=== PATIENT | female | born 1960 | race Caucasian/White ===

== ENCOUNTER 2020-06-05 10:11 | Emergency (ER) | payer OTHER, SELFPAY ==
[2020-06-05 10:31] VITALS: BP 143/86; PULSE 81; TEMP 36.3; O2SAT 98
--- NOTE | 2020-06-05 10:37 | ED.GENADUL_ITS ---
Discharge Plan Disposition Patient Disposition: HOME Condition: Stable Discharge Details Chief Complaint: AnimalBite Clinical Impression: Cat bite of ankle Primary Care Provider: Ne Proctor ED Provider: Umang Bhatti Home Meds and New Rx's Prescriptions: New amoxicillin-pot clavulanate [Augmentin] 875-125 mg tablet 1 tab PO BID Qty: 20 RF: 0 Discharge Instructions Instructions: Animal Bite (ED) Additional Instructions: Augmentin as directed. Keep the area clean and dry, you may apply antibiotic ointment daily. Please watch for new or worsening symptoms and return to the ER for any concerns. Medical Decision Making 60-year-old female presents having been bitten by her cat after accidentally stepping on his tail. She appears well, nontoxic. Neuro, vascular, tendon intact. Will fill out the proper paperwork for animal bite. Will not update the tetanus status secondary to her allergy. Will obtain x-ray to rule any foreign body or unlikely bony abnormality. Will initiate Keflex therapy. Patient reports that she already thoroughly cleaned the area with soap and water and applied antibiotic ointment X-ray of left ankle unremarkable. Patient made aware of findings. Has no additional questions or concerns. Medical Records Medical records reviewed: Yes I reviewed the patient's medical records. Imaging Data Radiologic Study: Attestation: I personally reviewed and interpreted this imaging study as follows: Imaging: X-Ray Radiologist's impression: Left ankle unremarkable HPI General Mode of arrival: ambulatory . Date/Time Provider Initiated Documentation: 06/05/20 10:16 . Limitations to Documentation: no limitations . Information obtained by: patient . HPI Narrative: 60-year-old female with history of hypertension, neuropathy, presents to the ER having had accidentally stepped on her cat, subsequently being bitten earlier this morning. She reports that the cat is healthy and up-to-date on all of his shots immunizations. She reports that she is unable to take the tetanus vaccine secondary to an allergy. She reports mild discomfort around the site of the bite but has no other symptoms. She has very little concern for a foreign body. No active bleeding. Reports mild decrease sensation secondary to her neuropathy but no true numbness or weakness. Related Data Home Medications Medication Instructions Recorded Confirmed amoxicillin-pot clavulanate 1 tab PO BID #20 tab 06/05/20 [Augmentin] Previous Rx's Medication Instructions Recorded amoxicillin-pot clavulanate 1 tab PO BID #20 tab 06/05/20 [Augmentin] Allergies Allergy/AdvReac Type Severity Reaction Status Date / Time Tetanus Vaccines and Toxoid AdvReac Severe Swelling/Ed Unverified 06/05/20 10:39 [Tetanus Vaccines & Toxoid] keon grass pollen-perennial rye, AdvReac Unverified 06/05/20 10:39 standar [grass poll-perennial rye,std] black fly Allergy Intermediate Swelling/Ed Uncoded 06/05/20 10:39 keon General Stated Complaint: AnimalBite JAYY: 5 Review of Systems Constitutional Constitutional: Denies fever(s) and Denies weakness Musculoskeletal Musculoskeletal: Denies numbness and Denies tingling Integumentary/Breasts Skin/Breast: Denies rash Neurologic Neurologic: Denies numbness, Denies tingling and Denies weakness [facility] Medical History Alcohol abuse (Inactive 07/21/14) Bullous pemphigoid (Acute 07/10/14) 07/03/14 [facility] [place] Crohn's disease in remission (Acute 06/29/14) Hypertension (Acute 06/29/14) Hyponatremia (Acute 07/21/14) Nystagmus (Acute 06/29/14) Wedge compression fracture of first lumbar vertebra, initial encounter for closed fracture (Acute 02/10/17) Surgical History fistulectomy 1999 Family History Mother Personal history of malignant neoplasm cervical cancer Father No problems noted. Brother No problems noted. Grandfather Essential hypertension Heart disease Hyperlipidemia Grandmother Essential hypertension Hyperlipidemia Social History Smoking/Tobacco Use Status: Never Alcohol Intake: current Alcohol Intake frequency: 0-2 drinks per day Alcohol type: wine Drug use: Never Substance use type: does not use Do you feel safe at home: Yes Do you feel safe in your relationship?: Yes Exam Const General: cooperative, healthy appearing, comfortable and no acute distress Orientation: alert and awake [facility] Head: normal to inspection, normocephalic and atraumatic Mouth: moist mucous membranes Eyes Conjunctivae: conjunctivae normal Neck Neck: normal visual inspection, trachea midline and supple Resp Effort & Inspection: normal respiratory effort and able to speak in complete sentences Cardio Rate: regular rate Rhythm: regular rhythm Skin General skin exam: no rashes or lesions noted Neuro General: patient alert, patient awake, moves all extremities and no focal motor deficits Sensory Exam: no sensory deficits noted Extrem Left lower extremity: ankle Details: normal ROM and other (abrasion and 3 separate puncture wounds. No bleeding or foreign body); no tenderness and no swelling Psych Appearance: grossly normal Mental Status: mental status grossly normal Course Vital Signs Vital signs: Vital Signs Temperature 36.3 C L 06/05/20 10:31 Pulse 81 06/05/20 10:31 Blood Pressure 143/86 H 06/05/20 10:31 Pulse Oximetry 98 06/05/20 10:31 Temperature 36.3 C L 06/05/20 10:31 Temperature Source Temporal Artery Scan 06/05/20 10:31 Pulse 81 06/05/20 10:31 Blood Pressure 143/86 H 06/05/20 10:31 Blood Pressure Position Sitting 06/05/20 10:31 Pulse Oximetry 98 06/05/20 10:31 Oxygen Delivery Method Room Air 06/05/20 10:31 Oxygen Flow Rate 0 06/05/20 10:31 Pain Level 1 06/05/20 10:31
--- NOTE | 2020-06-05 11:05 | DI.RAD_ITS ---
EXAM: XR ANKLE LT 2V CLINICAL HISTORY: leticia bite TECHNIQUE: COMPARISON: No exams were available for comparison FINDINGS: Two views were obtained. The ankle mortise is well maintained. No bony or soft tissue abnormality s een apart from some spurring at the attachment sites of plantar fascia and Achilles tendon on the deandre caneus. IMPRESSION:
--- NOTE | 2020-06-05 11:50 | NUR.NOTE ---
Nursing Note: Animal Bite reported to [facility] Officer/form faxed to [facility] Clerks Office.
== END 2020-06-05 11:19 | disposition home or self-care (01) ==
PROVIDERS: Emergency Provider Physician Assistant; PCP Nurse Practitioner
DX: S91.052A Open bite, left ankle, initial encounter (principal); W55.01XA Bitten by cat, initial encounter; I10 Essential (primary) hypertension
CPT/HCPCS: 99283; 73600

== ENCOUNTER 2021-05-22 08:55 | Emergency (ER) | payer OTHER, SELFPAY ==
[2021-05-22 08:59] VITALS: BP 163/86; PULSE 78; RESP 18; TEMP 36.2; O2SAT 99
--- NOTE | 2021-05-22 09:12 | ED.GENADUL_ITS ---
Discharge Plan Disposition Patient Disposition: HOME Condition: Stable Discharge Details Clinical Impression: UTI (urinary tract infection), Right flank pain Primary Care Provider: Ne Proctor ED Provider: Monet Mlils Home Meds and New Rx's Prescriptions: New cephalexin 500 mg capsule 500 mg PO BID 7 Days Qty: 14 RF: 0 ondansetron 4 mg tablet,disintegrating 4 mg PO TID PRN (Reason: nausea and vomiting) 4 Days Qty: 7 RF: 0 cyclobenzaprine 10 mg tablet 10 mg PO TID PRN (Reason: muscle spasm) Qty: 10 RF: 0 Discharge Instructions Instructions: Urinary Tract Infection in Women (ED), Low Back Strain (ED) Additional Instructions: X-ray shows no new findings from previous. Alternate ice and heat, take antibiotic and nausea medication as directed. Follow up with primary care provider in 3-5 days. Return to ED or be seen sooner if any worsening or concerns. Increase oral fluids. You may apply lidocaine patches once daily which you can get over the counter. Please take Tylenol or Ibuprofen with food every 4-6 hours as needed for pain and swelling. Stand Alone Forms: Physical Therapy Referral Referrals: Ne Proctor, [employer] P[employer] INSPECTOR [Primary Care Provider] - Medical Decision Making 61-year-old female presents the ER with chief complaint of right paraspinous back pain and muscle spasm. Patient reports that she was on a boat this weekend and recently did some heavy lifting. Pain got worse over the last 2?3 days. She has been taking Aleve at home and trying her 's muscle relaxer with little to no relief. She denies any radiation of pain into her legs denies any saddle anesthesia no loss of bowel or bladder control. She denies any recent trauma or falls. Pain is worse with movement and deep breathing. She has a past medical history of Crohn's disease, hypertension, bullous pemphigoid, wedge compression fracture of first lumbar vertebrae. She is a current daily smoker occasional alcohol. She has not taken anything for pain this morning. X-ray L-spine ordered, urinalysis, Valium 5 mg, 1 g of Tylenol and 5% lidocaine patch. Urinalysis shows positive nitrites, trace ketones, trace blood, small leukocytes 3-5 RBCs and 10-20 WBCs. Moderate bacteria, culture is pending at this time. Patient reevaluation, discussed urinalysis results with patient and cephalexin 500 mg p.o. given with 4 mg of Zofran ODT. Patient states that she gets nauseated and vomits with antibiotics. FINDINGS: There is a wedge compression fracture of L1, proximally 30 percent, age indeterminate. No obvious retropulsed fragment. Other lumbar vertebrae as well as T11 and T12 exhibit normal height. There is mild disc space narrowing noted at L2-3 and L5-S1 levels. No obvious facet arthropathy. No listhesis. IMPRESSION: Wedge compression fracture at superior endplate level of L1 vertebral body. Age indeterminate. Discussed findings with patient home care verbalized understanding. They are requesting a physical therapy referral which was placed at discharge. Put patient on 500 mg cephalexin twice daily x7 days. Instructed on RICE procedures. Patient remained hemodynamically stable throughout stay. Discussed strict return instructions and follow-up with PCP. HPI General Mode of arrival: ambulatory . Date/Time Provider Initiated Documentation: 05/22/21 08:56 . Limitations to Documentation: no limitations . Information obtained by: patient . HPI Narrative: 61-year-old female presents the ER with chief complaint of right paraspinous back pain and muscle spasm. Patient reports that she was on a boat this weekend and recently did some heavy lifting. Pain got worse over the last 2?3 days. She has been taking Aleve at home and trying her 's muscle relaxer with little to no relief. She denies any radiation of pain into her legs denies any saddle anesthesia no loss of bowel or bladder control. She denies any recent trauma or falls. Pain is worse with movement and deep breathing. She has a past medical history of Crohn's disease, hypertension, bullous pemphigoid, wedge compression fracture of first lumbar vertebrae. She is a current daily smoker occasional alcohol. She has not taken anything for pain this morning. Related Data Home Medications Medication Instructions Recorded Confirmed cephalexin 500 mg PO BID 7 Days #14 cap 05/22/21 cyclobenzaprine 10 mg PO TID PRN #10 tab 05/22/21 ondansetron 4 mg PO TID PRN 4 Days #7 tab 05/22/21 Previous Rx's Medication Instructions Recorded cephalexin 500 mg PO BID 7 Days #14 cap 05/22/21 cyclobenzaprine 10 mg PO TID PRN #10 tab 05/22/21 ondansetron 4 mg PO TID PRN 4 Days #7 tab 05/22/21 Allergies Allergy/AdvReac Type Severity Reaction Status Date / Time Tetanus Vaccines and Toxoid AdvReac Severe Swelling/Ed Unverified 05/22/21 09:04 [Tetanus Vaccines & Toxoid] keon grass pollen-perennial rye, AdvReac Unverified 05/22/21 09:04 standar [grass poll-perennial rye,std] black fly Allergy Intermediate Swelling/Ed Uncoded 05/22/21 09:04 keon General Stated Complaint: Nk/Back Pain JAYY: 3 Review of Systems Narrative: Constitutional: Negative for weight loss, alert and oriented, well groomed, normal body habitus, appears uncomfortable. HEENT: Denies trauma, headaches, blurry vision, nasal discharge, sore throat, trouble swallowing. Chest: Denies chest pain, palpitations, irregular rhythm, hypertension. Respiratory: Denies Shortness of breath, cough, hemoptysis. GI: Denies abdominal pain, nausea, vomiting, diarrhea, constipation. : Denies dysuria, hematuria, rectal bleeding. Musculoskeletal: Right paraspinous lumbar back pain. Neuro: Denies dizziness, blurry vision, weakness, syncope, headache or facial numbness. Denies loss of bowel or bladder control no numbness tingling. Hematologic: Denies easy bruising, intolerance to heat or cold, hair loss. [facility] Medical History (Updated 05/22/21 @ 10:49 by Monet Mills) Alcohol abuse (07/21/14) Bullous pemphigoid (07/10/14) 07/03/14 [facility] [place] Crohn's disease in remission (06/29/14) Hypertension (06/29/14) Hyponatremia (07/21/14) Nystagmus (06/29/14) Wedge compression fracture of first lumbar vertebra, initial encounter for closed fracture (02/10/17) Surgical History fistulectomy 1999 Family History Mother Personal history of malignant neoplasm cervical cancer Father No problems noted. Brother No problems noted. Grandfather Essential hypertension Heart disease Hyperlipidemia Grandmother Essential hypertension Hyperlipidemia Social History Smoking/Tobacco Use Status: Never Smoking risk assessment performed?: Yes Alcohol Intake: current Alcohol Intake frequency: 3 or more drinks per day Alcohol type: wine Drug use: Never Substance use type: does not use Do you feel safe at home: Yes Do you feel safe in your relationship?: Yes Exam Narrative Exam Narrative: Constitutional: Alert and oriented x3. Appears stated age. Normal body habitus. Head: Normocephalic, no trauma. Eyes: Pupils PERRLA, Red reflex noted, EOM's intact. Eyelids symmetrical without lesions, discharge, or swelling. Chest: RRR, Normal S1, S2, distal pulses intact. Resp: Lungs clear to auscultation bilaterally, no wheezes, rales, or rhonchi. Musculoskeletal: Normal gait, 5/5 strength to all four extremities. No midline crepitus or step-off. Does have some right paraspinous tenderness and spasm with palpation. Skin: No suspicious rashes or lesions. Capillary refill less than 2 sec. Neurologic: Cranial nerves II-XII intact. Alert and oriented x 3. DTR's intact. Hematologic/Lymphatic: No ecchymosis, no lymphadenopathy. Course Vital Signs Vital signs: Vital Signs Temperature 36.2 C L 05/22/21 08:59 Pulse 78 05/22/21 08:59 Respiratory Rate 18 05/22/21 08:59 Blood Pressure 163/86 H 05/22/21 08:59 Pulse Oximetry 99 05/22/21 08:59 Temperature 36.2 C L 05/22/21 08:59 Temperature Source Temporal Artery Scan 05/22/21 08:59 Pulse 78 05/22/21 08:59 Respiratory Rate 18 05/22/21 08:59 Respiratory Effort Non-Labored 05/22/21 09:03 Blood Pressure 163/86 H 05/22/21 08:59 Blood Pressure Position Sitting 05/22/21 08:59 Pulse Oximetry 99 05/22/21 08:59 Oxygen Delivery Method Room Air 05/22/21 08:59 Oxygen Flow Rate 0 05/22/21 08:59 Pain Level 10 05/22/21 08:59
[2021-05-22] MEDS: Acetaminophen 500 MG TAB 1000 MG PO (09:26)
[2021-05-22] MEDS: Lidocaine 5% Patch 1 PATCH TP (09:26)
[2021-05-22] MEDS: diazePAM 5 MG TAB PO (09:26)
[2021-05-22 09:29] LABS: Bilirubin Negative (Negative); Blood Trace-intact (Negative); Clarity Clear (Clear); Glucose 100 mg/dL (Negative); Ketones Trace mg/dL (Negative); Leukocyte Esterase Small (Negative); Nitrite Positive (Negative); Specific Gravity 1.015 (1.005-1.025); Urobilinogen 0.2 EU/dL (Up TO 0.2)
[2021-05-22 09:40] LABS: Bacteria Moderate HPF (Negative); C & S Indicated? Yes; Casts Negative LPF (Negative); Crystals Negative HPF (Negative); Epithelial Cells Rare HPF (Negative); Mucus Negative (Negative); Other Cells Negative (Negative)
[2021-05-22] MEDS: Cephalexin 500 MG CAP PO (09:57)
[2021-05-22] MEDS: Ondansetron O.D.T. 4 MG TABEF PO (09:59)
--- NOTE | 2021-05-22 10:26 | DI.RAD_ITS ---
Exam(s) XR LUMBAR SPINE COMPLETE EXAM: XR LUMBAR SPINE COMPLETE CLINICAL HISTORY: Back pain,Hx L1 compression fracture. TECHNIQUE: 2D digital imaging was performed. COMPARISON: US ABDOMEN ULTRASOUND (P) from 02/25/2012 FINDINGS: There is a wedge compression fracture of L1, proximally 30 percent, age indeterminate. No obvious re tropulsed fragment. Other lumbar vertebrae as well as T11 and T12 exhibit normal height. There is m ild disc space narrowing noted at L2-3 and L5-S1 levels. No obvious facet arthropathy. No listhesis . IMPRESSION: Wedge compression fracture at superior endplate level of L1 vertebral body. Age indeterminate. DATA REPOSITORY: RADIATION DOSE DELIVERED:
== END 2021-05-22 11:02 | disposition home or self-care (01) ==
PROVIDERS: Emergency Provider Registered Nurse Emergency; PCP Nurse Practitioner
DX: N39.0 Urinary tract infection, site not specified (principal); R10.9 Unspecified abdominal pain
CPT/HCPCS: 99283; 72110; 81003; 81015; 87086

== ENCOUNTER 2024-03-10 12:10 | Emergency (ER) | payer MEDICARE, SELFPAY ==
[2024-03-10 12:12] VITALS: BP 159/81; PULSE 87; RESP 16; TEMP 36.5; O2SAT 96
--- NOTE | 2024-03-10 12:30 | DI.RAD_ITS ---
Exam(s) XR FOOT RT COMPLETE EXAM: XR FOOT RT COMPLETE CLINICAL HISTORY: Pain. TECHNIQUE: 2D digital imaging was performed. Three views. COMPARISON: CR RIGHT FOOT COMPLETE from 12/22/2008 FINDINGS: BONES: No acute fracture is present. No bony destructive lesion is seen. Tiny heel spurs. JOINTS: No dislocation present. Degenerative changes of the 1st MTP joint. SOFT TISSUE: Normal. IMPRESSION: Degenerative changes of the 1st MTP joint. DATA REPOSITORY: RADIATION DOSE DELIVERED:
--- NOTE | 2024-03-10 12:30 | DI.RAD_ITS ---
Exam(s) XR ANKLE RT COMPLETE EXAM: XR ANKLE RT COMPLETE CLINICAL HISTORY: Pain. TECHNIQUE: 2D digital imaging was performed. Three views. COMPARISON: CR XR ANKLE LT 2V from 06/05/2020 FINDINGS: BONES: No acute fracture is present. No bony destructive lesion is seen. Tiny heel spurs. JOINTS: The ankle mortise is normally aligned. No significant degenerative changes. SOFT TISSUE: Normal. IMPRESSION: Tiny heel spurs. No acute abnormality. DATA REPOSITORY: RADIATION DOSE DELIVERED:
--- NOTE | 2024-03-10 12:46 | ED.GENADUL_ITS ---
Discharge Plan Disposition Patient Disposition: Home Condition: Stable Discharge Details Clinical Impression: Heel spur, Arthritis of foot, right, degenerative Primary Care Provider: Viry Friedman ED Provider: Monet Mills Home Meds and New Rx's Prescriptions: No Action No Known Home Meds Discharge Instructions Instructions: Heel Spur (ED), Arthritis (ED) Additional Instructions: Wear the walking boot for comfort as needed. Rest ice elevation when sitting or laying down. X-rays show small heel spurs which may be the cause for your pain. He also have due to some degenerative joint disease in your first large big toe. No broken bones or fractures noted. Please take Tylenol or Ibuprofen with food every 4-6 hours as needed for pain and swelling. Follow up with primary care provider in 3-5 days. Return to ED sooner if any worsening or concerns. Referrals: Viry Friedman, SALES ASSISTANT [employer] [Primary Care Provider] - 3 days Discharge Data Discharge Date/Time-TO BE ENTERED AT DEPARTURE: 03/10/24 14:41 HPI General Mode of arrival: ambulatory . Date/Time Provider Initiated Documentation: 03/10/24 12:22 . Limitations to Documentation: no limitations . Information obtained by: patient, family, RN notes reviewed and old records reviewed . HPI Narrative: 64-year-old female presents to ER with a chief complaint of right foot and ankle pain which began last night. She reports that it started from her heel going up her ankle when putting weight on it. She reports that she had to crawl to the b athroom and unable to ambulate this morning. She denies any known injury she reports that she had a normal day yesterday. Did not take any Tylenol or ibuprofen. She does have a history of alcohol abuse. Related Data Home Medications Medication Instructions Recorded Confirmed Unknown [No Known Home Meds] 03/10/24 03/10/24 Allergies Allergy/AdvReac Type Severity Reaction Status Date / Time Tetanus Vaccines and Toxoid AdvReac Severe Swelling/Ed Verified 03/10/24 12:18 [Tetanus Vaccines & Toxoid] keon grass pollen-perennial rye, AdvReac Other (See Verified 03/10/24 12:18 standar Comment) [grass poll-perennial rye,std] black fly Allergy Intermediate Swelling/Ed Uncoded 03/10/24 12:18 keon General Stated Complaint: Orthopedic JAYY: 4 Review of Systems Musculoskeletal Musculoskeletal: Reports as per HPI Exam Const General: cooperative and healthy appearing Nutritional Appearance: average body habitus Orientation: alert, awake and oriented x3 Skin General skin exam: no rashes or lesions noted, elasticity normal and turgor normal Extrem General: normal to inspection Right lower extremity: ankle Details: normal to inspection and foot Details: normal to inspection and no edema; no crepitus Course Vital Signs Vital signs: Vital Signs Temperature 36.5 C 03/10/24 12:12 Pulse 87 03/10/24 12:12 Respiratory Rate 16 03/10/24 12:12 Blood Pressure 159/81 H 03/10/24 12:12 Pulse Oximetry 96 03/10/24 12:12 Temperature 36.5 C 03/10/24 12:12 Temperature Source Oral 03/10/24 12:12 Pulse 87 03/10/24 12:12 Respiratory Rate 16 03/10/24 12:12 Respiratory Effort Normal 03/10/24 12:20 Blood Pressure 159/81 H 03/10/24 12:12 Pulse Oximetry 96 03/10/24 12:12 Oxygen Delivery Method Room Air 03/10/24 12:12 Oxygen Flow Rate 0 03/10/24 12:12 Pain Level 3 03/10/24 12:12 Medical Decision Making 64-year-old female presents to ER with a chief complaint of right foot and ankle pain which began last night. She reports that it started from her heel going up her ankle when putting weight on it. She reports that she had to crawl to the bathroom and unable to ambulate this morning. She denies any known injury she reports that she had a normal day yesterday. Did not take any Tylenol or ibuprofen. She does have a history of alcohol abuse. No obvious deformity or crepitus is palpated. X-ray of foot and ankle ordered. I did offer analgesic which patient declined at this time. X-ray results noted below, does show some degenerative changes and tiny heel spurs. Patient given a walking boot, instructed on home care and follow-up care. This text was generated using [employer] Radioation system, please disregard any oddities of phrase or misspellings. Imaging Data Radiologic Study: Imaging: X-Ray Radiologist's impression: EXAM: XR FOOT RT COMPLETE CLINICAL HISTORY: Pain. TECHNIQUE: 2D digital imaging was performed. Three views. COMPARISON: CR RIGHT FOOT COMPLETE from 12/22/2008 FINDINGS: BONES: No acute fracture is present. No bony destructive lesion is seen. Tiny heel spurs. JOINTS: No dislocation present. Degenerative changes of the 1st MTP joint. SOFT TISSUE: Normal. IMPRESSION: Degenerative changes of the 1st MTP joint. Quality:SDOH Health Related Social Needs: No Data to Display PFSH All Active Problems (Updated 03/10/24 @ 14:09 by Monet Mills NP) Arthritis of foot, right, degenerative (Acute) Heel spur (Acute) Positive self-administered antigen test for COVID-19 (Acute) sx onset 03/21/23. positive home test 03/23/23 Right low back pain (Acute) Presenting w/ M-Skel pain.. Hx T11-L1 Vert Fx. UTI (urinary tract infection) (Acute) ED, 05/22/21 w/ flank pain .. now c/o right back pain ... Right flank pain (Acute) Ba angioma (Acute) Onychomycosis (Acute) Milia (Acute) Seborrheic keratoses (Acute) Bullous pemphigoid (Acute 07/10/14) 07/03/14 [facility] [place] Wedge compression fracture of first lumbar vertebra, initial encounter for closed fracture (Acute 02/10/17) Nystagmus (Acute 06/29/14) Hyponatremia (Acute 07/21/14) Hypertension (Acute 06/29/14) Crohn's disease in remission (Acute 06/29/14) Medical History Alcohol abuse (07/21/14) Surgical History fistulectomy 1999 Family History Mother Personal history of malignant neoplasm cervical cancer Father No problems noted. Brother No problems noted. Grandfather Essential hypertension Heart disease Hyperlipidemia Grandmother Essential hypertension Hyperlipidemia Social History Smoking/Tobacco Use Status: Never Smoking risk assessment performed?: Yes Alcohol Intake: current Alcohol Intake frequency: 3 or more drinks per day Alcohol type: wine Drug use: Never Substance use type: does not use Do you feel safe at home: Yes Do you feel safe in your relationship?: Yes
[2024-03-10 13:48] VITALS: BP 139/76; PULSE 95; RESP 18; O2SAT 99
== END 2024-03-10 14:41 | disposition home or self-care (01) ==
PROVIDERS: Emergency Provider Registered Nurse Emergency; PCP Nurse Practitioner Adult Health
DX: M19.071 Primary osteoarthritis, right ankle and foot (principal); M77.31 Calcaneal spur, right foot; I10 Essential (primary) hypertension
CPT/HCPCS: 99283; 73610; 73630

== ENCOUNTER → 2024-04-06 14:23 | Outpatient (BNVA) | payer MEDICARE, BC, SELFPAY | PROVIDERS: PCP Nurse Practitioner Adult Health; Referring Provider Nurse Practitioner Adult Health; Visit Provider Podiatrist | DX: M84.374A Stress fracture, right foot, initial encounter for fracture; M84.371A Stress fracture, right ankle, initial encounter for fracture; M79.671 Pain in right foot; B35.1 Tinea unguium; L60.3 Nail dystrophy; M79.672 Pain in left foot; X58.XXXA Exposure to other specified factors, initial encounter | CPT/HCPCS: 99203 ==

== ENCOUNTER → 2024-04-08 01:21 | Outpatient (CLI) | payer MEDICARE, BC, SELFPAY ==
--- NOTE | 2024-04-08 06:45 | DI.RAD_ITS ---
Exam(s) XR ANKLE RT COMPLETE XR FOOT RT COMPLETE EXAM: XR FOOT RT COMPLETE and XR ankle RT complete CLINICAL HISTORY: pain in right ankle,STRESS FX ,M84.371A,M84.374A. TECHNIQUE: 2D digital imaging was performed of the right ankle and foot. Six images were obtained. AP, oblique and lateral views were obtained. COMPARISON: CR XR FOOT RT COMPLETE from 03/10/2024 CR XR ANKLE RT COMPLETE from 03/10/2024 FINDINGS: BONES: No acute fracture is present. No bony destructive lesion is seen. No periosteal reaction is pr esent. There is a tiny plantar calcaneal spur. There is a small enthesophyte at the posterior calca neus. JOINTS: No dislocation present. Stable moderate degenerative changes are seen at the 1st MTP joint. SOFT TISSUE: Normal. IMPRESSION: Stable appearance of the right foot and ankle. No evidence of a healing or acute fracture. DATA REPOSITORY: RADIATION DOSE DELIVERED:
== END ==
PROVIDERS: PCP Nurse Practitioner Adult Health; Visit Provider Podiatrist
DX: M25.571 Pain in right ankle and joints of right foot
CPT/HCPCS: 73610; 73630

== ENCOUNTER → 2024-04-26 02:49 | Outpatient (CLI) | payer MEDICARE, BC, SELFPAY ==
--- NOTE | 2024-04-26 13:40 | DI.RAD_ITS ---
Exam(s) XR ANKLE RT COMPLETE XR FOOT RT COMPLETE EXAM: XR FOOT RT COMPLETE and XR ankle RT complete CLINICAL HISTORY: pain in right foot, STRESS FRACTURE, M79.671, M84.371A, M84.374A. TECHNIQUE: 2D digital imaging was performed of the right ankle and foot. Six images were obtained. AP, oblique and lateral views were obtained. COMPARISON: CR XR FOOT RT COMPLETE from 04/08/2024 CR XR ANKLE RT COMPLETE from 04/08/2024 FINDINGS: BONES: No evidence of an acute or healing fracture. No bony destructive lesion is seen. There is a s mall enthesophyte at the posterior calcaneus. There is a tiny plantar calcaneal spur. JOINTS: No dislocation present. Degenerative changes are seen in the foot which are most marked at th e 1st MTP joint where there is joint space narrowing and osteophytes present. The ankle is well main tained. SOFT TISSUE: Normal. IMPRESSION: Stable appearance of the right foot and ankle. No periosteal reaction is seen to suggest a healing f racture. DATA REPOSITORY: RADIATION DOSE DELIVERED:
== END ==
PROVIDERS: PCP Nurse Practitioner Adult Health; Visit Provider Podiatrist
DX: M25.571 Pain in right ankle and joints of right foot (principal)
CPT/HCPCS: 73610; 73630

== ENCOUNTER 2024-06-01 17:30 | Outpatient (CLI) | payer MEDICARE, BC, SELFPAY ==
--- NOTE | 2024-06-01 17:30 | RT.EKG_ITS ---
APPROVED REPORT Exam: Resting ECG Reason for Exam: r/o old IA/abd Patient Location: O HR:90 bpm ECG Measurements Heart Rate 90 AXIS OH 203 P 58 QRSd 102 QRS 0 QT 365 T 33 QTc 447 Conclusion Sinus rhythm...normal P axis, V-rate 50- 99 Low voltage, extremity leads...all extremity leads <0.5mV
== END 2024-06-01 17:31 | disposition home or self-care (01) ==
LOC: DI.KIM 17:32
PROVIDERS: PCP Nurse Practitioner Adult Health; Visit Provider Nurse Practitioner Adult Health
DX: I10 Essential (primary) hypertension (principal); R07.9 Chest pain, unspecified; R00.2 Palpitations; Z13.1 Encounter for screening for diabetes mellitus; Z13.220 Encounter for screening for lipoid disorders; Z12.31 Encounter for screening mammogram for malignant neoplasm of breast; Z59.9 Problem related to housing and economic circumstances, unspecified; Z63.6 Dependent relative needing care at home
CPT/HCPCS: 93010

== ENCOUNTER → 2024-06-21 13:22 | Outpatient (BNVA) | payer MEDICARE, BC, SELFPAY | PROVIDERS: PCP Nurse Practitioner Adult Health; Referring Provider Nurse Practitioner Adult Health; Visit Provider Podiatrist | DX: B35.1 Tinea unguium (principal); L60.3 Nail dystrophy; M79.671 Pain in right foot; M79.672 Pain in left foot; R25.2 Cramp and spasm | CPT/HCPCS: 11720 ==